=== PATIENT | female | born 1935 | race Caucasian/White ===

== ENCOUNTER 2022-02-23 11:19 | Emergency (ER) | payer MEDICARE, BC ==
[2022-02-23] MEDS ORDERED: traMADol 50 MG Tab PO ONE (13:26)
[2022-02-23] MEDS ORDERED: Ciprofloxacin 500 MG Tab PO ONE (13:28)
== END 2022-02-23 15:43 | disposition home or self-care (01) ==
LOC: JP.ED 11:19
DX: R33.9 Retention of urine, unspecified (principal); M51.16 Intervertebral disc disorders with radiculopathy, lumbar region
CPT/HCPCS: 51702; 72131; 72192; 81001; 87086; 87088; 87186; 99284; A9270; 99282